=== PATIENT | female | born 1970 | race African-American/Black ===

== ENCOUNTER 2023-02-14 10:28 | Outpatient (OUT) | payer OTHER, SELFPAY ==
--- NOTE | 2023-02-14 10:39 | XR_ITS ---
The [address] [address] Patient Name: MARLENA ROJAS MRN: [id number] date: 1970 Sex: F Assigned Patient Location: [facility] Current Patient Location: [facility] Accession/Order Number: [id number] Exam Date: 02/14/2023 10:45 Report Date: 02/14/2023 11:03 At the request of: VIVIAN CERNA Procedure: XR hand RT min 3V EXAM: Right hand HISTORY: Crush injury at work this morning. TECHNIQUE: 3 views of the right hand were obtained. FINDINGS: There is no definite evidence of fracture or dislocation. Evaluation of the digits is limited due to positioning. There are no suspicious bone lesions. Soft tissues are normal. XR/XR hand RT min 3V IMPRESSION: Limited but grossly negative exam. Electronically authenticated by: KIRSTY SINCLAIR Date: 02/14/2023 11:03
== END 2023-02-14 10:29 | disposition home or self-care (01) ==
LOC: RAD 10:32
PROVIDERS: Visit Provider Nurse Practitioner Family
DX: S67.21XA Crushing injury of right hand, initial encounter (principal); S67.10XA Crushing injury of unspecified finger(s), initial encounter
CPT/HCPCS: 73130